=== PATIENT | female | born 1960 | race Caucasian/White ===

== ENCOUNTER 2017-05-20 15:13 | Outpatient (CLI) | payer OTHER | END 2017-05-20 15:14 | disposition home or self-care (01) | LOC: BICMAMMO 15:13 | PROVIDERS: ATTEND Internal Medicine Medical Oncology | DX: C50.511 Malignant neoplasm of lower-outer quadrant of right female breast (principal) | CPT/HCPCS: 77066; G0279 ==

== ENCOUNTER 2018-01-12 08:58 | Outpatient (CLI) | payer OTHER ==
--- NOTE | 2018-01-12 09:39 | BD ---
DEXA BONE DENSITY SCAN: 01/12/2018 HISTORY: A 57-year-old postmenopausal female, undergoing screening for osteoporosis. COMPARISON: None. LUMBAR SPINE BMD (g/cm2) T-SCORE PREVIOUS T-SCORE L1 0.930 -0.5 0.6 L2 0.951 -0.7 0.5 L3 1.060 -0.2 1.1 L4 1.053 -0.1 1.3 TOTAL 1.005 -0.4 0.9 FEMORAL NECK: 0.868 0.2 1.4 TOTAL: 1.010 0.6 1.4 The FRAX-WHO Fracture Risk Assessment Total is not reported, as all T-scores are at or above -1.0. IMPRESSION: Normal lumbar spine bone mineral density examination. POS: [facility]
== END 2018-01-12 08:59 | disposition home or self-care (01) ==
LOC: BICMAMMO 08:58
PROVIDERS: ATTEND Internal Medicine Medical Oncology
DX: C50.919 Malignant neoplasm of unspecified site of unspecified female breast (principal); Z78.0 Asymptomatic menopausal state
CPT/HCPCS: 77080

== ENCOUNTER 2018-07-28 08:18 | Outpatient (CLI) | payer OTHER ==
--- NOTE | 2018-07-28 08:50 | MMO ---
Bilateral MAMMO Bilat Diag [facility]. CLINICAL HISTORY: Patient is 58 years old and is seen for diagnostic exam. The patient has the following family history of breast cancer: maternal aunt, at age 80. The patient has a history of malignant (generic) in the right breast in 2016 and Skin cancer. The patient has a history of right Lumpectomy in 2016 - malignant and right Ultrasound Guided Core Biopsy in 2016 - malignant. VIEWS: The views performed were: bilateral craniocaudal with tomosynthesis; bilateral mediolateral oblique with tomosynthesis; and bilateral mediolateral. FILMS COMPARED: The present examination has been compared to prior imaging studies performed at [facility] on 05/20/2017, and at [facility] on 10/11/2014, 06/09/2015 and 05/31/2016. MAMMOGRAM FINDINGS: There are scattered fibroglandular densities. Finding 1: There is a stable post-surgical scar seen in the upper region of the right breast. Finding 2: There are benign appearing calcifications seen in the right breast. There are no suspicious masses, suspicious calcifications, or new areas of architectural distortion. IMPRESSION: THERE IS NO MAMMOGRAPHIC EVIDENCE OF MALIGNANCY. A ROUTINE FOLLOW-UP MAMMOGRAM IN 1 YEAR IS RECOMMENDED. THE RESULTS OF THIS EXAM WERE SENT TO THE PATIENT. ACR BI-RADS Category 2 - Benign finding MAMMOGRAPHY NOTE: 1. A negative mammogram report should not delay a biopsy if a dominant of clinically suspicious mass is present. 2. Approximately 10% to 15% of breast cancers are not detected by mammography. 3. Adenosis and dense breasts may obscure an underlying neoplasm.
== END 2018-07-28 08:19 | disposition home or self-care (01) ==
LOC: BICMAMMO 08:18
PROVIDERS: ATTEND Internal Medicine Medical Oncology
DX: Z08 Encounter for follow-up examination after completed treatment for malignant neoplasm (principal); Z85.3 Personal history of malignant neoplasm of breast
CPT/HCPCS: 77066; G0279

== ENCOUNTER 2019-07-30 10:12 | Outpatient (CLI) | payer OTHER ==
--- NOTE | 2019-07-30 10:49 | MMO ---
Bilateral MAMMO Bilat Diag [facility]. CLINICAL HISTORY: Patient is 59 years old and is seen for diagnostic exam. The patient has the following family history of breast cancer: maternal aunt, at age 80. The patient has a history of malignant (generic) in the right breast in 2016 and Skin cancer. The patient has a history of right Lumpectomy in 2016 - malignant and right Ultrasound Guided Core Biopsy in 2016 - malignant. VIEWS: The views performed were: bilateral craniocaudal with tomosynthesis; bilateral mediolateral oblique with tomosynthesis; and bilateral mediolateral with tomosynthesis. FILMS COMPARED: The present examination has been compared to prior imaging studies performed at [facility] [place] on 05/20/2017 and 07/28/2018, and at [facility] on 06/09/2015 and 05/31/2016. This study has been interpreted with the assistance of computer-aided detection. MAMMOGRAM FINDINGS: There are scattered fibroglandular densities. There are benign appearing calcifications and post op changes in the right breast. There are no suspicious masses, suspicious calcifications, or new areas of architectural distortion. IMPRESSION: THERE IS NO MAMMOGRAPHIC EVIDENCE OF MALIGNANCY. A ROUTINE FOLLOW-UP MAMMOGRAM IN 1 YEAR IS RECOMMENDED. THE RESULTS OF THIS EXAM WERE SENT TO THE PATIENT. ACR BI-RADS Category 2 - Benign finding MAMMOGRAPHY NOTE: 1. A negative mammogram report should not delay a biopsy if a dominant of clinically suspicious mass is present. 2. Approximately 10% to 15% of breast cancers are not detected by mammography. 3. Adenosis and dense breasts may obscure an underlying neoplasm. Reported by: CARLOS MERRILL MD Electonically Signed: [id number]
--- NOTE | 2019-07-30 12:25 | BD ---
BONE DENSITOMETRY USING DEXA: Date: 07/30/2019 HISTORY: Postmenopausal screening for osteoporosis. FINDINGS: Lumbar Spine: BMD (g/cm2) L1 0.936 T-Score: -0.5 Z-Score: 0.7 L2 0.987 T-Score: -0.4 Z-Score: 1.0 L3 1.053 T-Score: -0.3 Z-Score: 1.1 L4 1.041 T-Score: -0.2 Z-Score: 1.3 L1-L4 1.010 T-Score: -0.3 Z-Score: 1.0 Femoral Neck: 0.843 T-Score: -0.1 Z-Score: 1.2 Total Femur: 0.997 T-Score: 0.4 Z-Score: 1.4 There has been interval improvement of 0.5% in the bone mineral density of the lumbar spine and a red uction of 1.3% in the bone mineral density of the proximal femur since 01/12/2018. IMPRESSION: Normal bone mineral density. POS: [facility]
== END 2019-07-30 10:13 | disposition home or self-care (01) ==
LOC: BICMAMMO 10:12
PROVIDERS: ATTEND Internal Medicine Medical Oncology
DX: Z13.820 Encounter for screening for osteoporosis (principal); C50.511 Malignant neoplasm of lower-outer quadrant of right female breast; N95.8 Other specified menopausal and perimenopausal disorders
CPT/HCPCS: 77066; 77080; G0279

== ENCOUNTER 2019-08-17 14:54 | Outpatient (CLI) | payer OTHER ==
--- NOTE | 2019-08-17 15:30 | RAD ---
LEFT ANKLE THREE VIEWS: 08/17/19 HISTORY: Left lateral ankle pain. FINDINGS/IMPRESSION: The ankle mortise is maintained. No acute fracture or dislocation is seen. A plantar calcaneal spur i s present. There are small well corticated bony densities inferior to the medial malleolus likely due to remote trauma. POS: [facility]
== END 2019-08-17 14:55 | disposition home or self-care (01) ==
LOC: BICRAD 14:54
PROVIDERS: ATTEND Physician Assistant
DX: M25.572 Pain in left ankle and joints of left foot (principal); M77.32 Calcaneal spur, left foot

== ENCOUNTER 2020-07-31 13:51 | Outpatient (CLI) | payer BC | END 2020-07-31 13:52 | disposition home or self-care (01) | LOC: BICMAMMO 13:51 | PROVIDERS: ATTEND Internal Medicine Medical Oncology | DX: Z08 Encounter for follow-up examination after completed treatment for malignant neoplasm (principal); Z85.3 Personal history of malignant neoplasm of breast | CPT/HCPCS: 77066; G0279 ==

== ENCOUNTER 2020-08-31 13:24 | Outpatient (CLI) | payer BC | END 2020-08-31 13:25 | disposition home or self-care (01) | LOC: BICCT 13:24 | PROVIDERS: ATTEND Urology | DX: R31.9 Hematuria, unspecified (principal); N28.1 Cyst of kidney, acquired; K76.9 Liver disease, unspecified | CPT/HCPCS: 74178; 82565 ==

== ENCOUNTER 2021-08-30 14:25 | Outpatient (CLI) | payer BC | END 2021-08-30 14:26 | disposition home or self-care (01) | LOC: BICMAMMO 14:25 | PROVIDERS: ATTEND Internal Medicine Medical Oncology | DX: Z12.31 Encounter for screening mammogram for malignant neoplasm of breast (principal); R92.1 Mammographic calcification found on diagnostic imaging of breast; Z85.3 Personal history of malignant neoplasm of breast; Z80.3 Family history of malignant neoplasm of breast; Z85.828 Personal history of other malignant neoplasm of skin; Z98.890 Other specified postprocedural states | CPT/HCPCS: 77063; 77067 ==

== ENCOUNTER 2022-09-25 13:35 | Outpatient (CLI) | payer BC | END 2022-09-25 13:36 | disposition home or self-care (01) | LOC: BICMAMMO 13:35 | PROVIDERS: ATTEND Registered Nurse | DX: Z12.31 Encounter for screening mammogram for malignant neoplasm of breast (principal); Z80.3 Family history of malignant neoplasm of breast; Z85.3 Personal history of malignant neoplasm of breast; Z85.828 Personal history of other malignant neoplasm of skin; Z98.890 Other specified postprocedural states | CPT/HCPCS: 77063; 77067 ==

== ENCOUNTER 2023-10-16 14:58 | Outpatient (CLI) | payer BC | END 2023-10-16 14:59 | disposition home or self-care (01) | LOC: BICMAMMO 14:58 | PROVIDERS: ATTEND Registered Nurse | DX: Z12.31 Encounter for screening mammogram for malignant neoplasm of breast (principal); Z80.3 Family history of malignant neoplasm of breast; Z85.3 Personal history of malignant neoplasm of breast; Z85.828 Personal history of other malignant neoplasm of skin; Z90.11 Acquired absence of right breast and nipple | CPT/HCPCS: 77063; 77067 ==